=== PATIENT | female | born 1965 | race Caucasian/White ===

== ENCOUNTER → 2021-08-12 | Outpatient (CLI) | payer OTHER | LOC: M WHC 10:17 | PROVIDERS: ATTEND Student in an Organized Health Care Education/Training Program | DX: Z12.31 Encounter for screening mammogram for malignant neoplasm of breast (principal); Z78.0 Asymptomatic menopausal state ==

== ENCOUNTER → 2022-08-16 | Outpatient (CLI) | payer BC, OTHER ==
[~2022-08-16] MED LIST: ALPR1TAB3 PO; LEXA1TAB PO; LISI20TA33 PO; METO1TAB7 PO; MIRT-11 PO
== END ==
LOC: M WHC 13:55
PROVIDERS: ATTEND Student in an Organized Health Care Education/Training Program
DX: Z12.31 Encounter for screening mammogram for malignant neoplasm of breast (principal)

== ENCOUNTER → 2022-08-23 | Outpatient (CLI) | payer BC, OTHER | LOC: M LABSMTC 08:51 | PROVIDERS: ATTEND Anesthesiology | DX: Z01.818 Encounter for other preprocedural examination (principal) ==

== ENCOUNTER 2022-08-24 08:11 | Day surgery (SDC) | payer BC ==
[~2022-08-24] VITALS: Ht 167.6 cm; Wt 79.3 kg
[~2022-08-24 08:11] MED LIST changes: +NS 1,000 ML IV ONE
[2022-08-24] MEDS ORDERED: propofoL 200 MG/20 ML VIAL As Ordered ONE (09:04)
[2022-08-24 09:42] VITALS: BP 131/81
== END 2022-08-24 09:44 | disposition home or self-care (01) ==
LOC: M OPP 08:11
PROVIDERS: ATTEND Surgery
DX: Z12.11 Encounter for screening for malignant neoplasm of colon (principal); K64.0 First degree hemorrhoids; K57.30 Diverticulosis of large intestine without perforation or abscess without bleeding; Z79.899 Other long term (current) drug therapy; Z99.89 Dependence on other enabling machines and devices; G47.33 Obstructive sleep apnea (adult) (pediatric); I34.1 Nonrheumatic mitral (valve) prolapse; F41.9 Anxiety disorder, unspecified; G43.909 Migraine, unspecified, not intractable, without status migrainosus; Z90.49 Acquired absence of other specified parts of digestive tract

== ENCOUNTER → 2022-10-03 | Outpatient (CLI) | payer BC ==
[~2022-10-03] MED LIST changes: -NS 1,000 ML IV ONE
== END ==
LOC: M WHC 13:36
PROVIDERS: ATTEND Student in an Organized Health Care Education/Training Program
DX: R92.1 Mammographic calcification found on diagnostic imaging of breast (principal)
CPT/HCPCS: 76642; 77065; G0279

== ENCOUNTER 2023-09-23 08:13 | Emergency (ER) | payer BC, OTHER ==
[~2023-09-23] VITALS: Ht 167.6 cm; Wt 83.6 kg
[2023-09-23] MEDS ORDERED: ISOSORBIDE MON. (IMDUR) 60MG XR TAB PO ONE (08:45)
[2023-09-23] MEDS ORDERED: ALPRAZolam 0.5 MG TAB PO ONE (08:45)
[2023-09-23 09:12] VITALS: BP 175/102
[2023-09-23 09:14] LABS: BASO # 0.1 10^3/uL (0.0-0.2); BASO % 0.7 % (0.0-1.0); EOS # 0.3 10^3/uL (0.0-0.5); EOS % 3.7 % (0.0-3.0); HEMATOCRIT 42.2 % (36.0-47.0); HEMOGLOBIN 14.6 g/dl (12.0-15.5); LYMPH # 1.9 10^3/uL (1.5-5.0); MEAN CORPUSCULAR HEMOGLOBIN 33.5 pg (27.0-33.0); MEAN CORPUSCULAR HGB CONC 34.6 g/dl (32.0-36.5); MEAN CORPUSCULAR VOLUME 96.8 fl (80.0-96.0); MONO # 0.6 10^3/uL (0.0-0.8); MONO % 8.1 % (2.0-8.0); NEUTROPHILS % 59.2 % (36.0-66.0); PLATELET COUNT, AUTOMATED 190 10^3/uL (150-450); RED BLOOD COUNT 4.36 10^6/uL (4.00-5.40); WHITE BLOOD COUNT 6.8 10^3/uL (4.0-10.0)
[2023-09-23 09:26] LABS: INR 1.06; PROTHROMBIN TIME 13.5 SECONDS (12.5-14.5)
[2023-09-23 09:29] LABS: D-DIMER QUANT 0.28 ug/mL (<0.5)
[2023-09-23 09:39] LABS: ALBUMIN 3.6 G/DL (3.2-5.2); ALKALINE PHOSPHATASE 78 U/L (46-116); ALT/SGPT 52 U/L (7.0-40); AST/SGOT 43 U/L (<34); BILIRUBIN,DIRECT 0.1 MG/DL (<0.4); BILIRUBIN,TOTAL 0.3 MG/DL (0.3-1.2); BLOOD UREA NITROGEN 17 MG/DL (9-23); CALCIUM LEVEL 9.4 MG/DL (8.5-10.1); CARBON DIOXIDE LEVEL 26 MMOL/L (20-31); CHLORIDE LEVEL 106 MMOL/L (98-107); CK-MB VALUE MASS < 1.0 NG/ML (<3.6); CREATININE FOR GFR 0.87 MG/DL (0.55-1.30); GLOMERULAR FILTRATION RATE > 60.0 (>51); GLUCOSE, FASTING 94 MG/DL (60-100); MAGNESIUM LEVEL 1.8 MG/DL (1.8-2.4); POTASSIUM SERUM 4.6 MMOL/L (3.5-5.1); SODIUM LEVEL 135 MMOL/L (136-145); TOTAL PROTEIN 7.2 G/DL (5.7-8.2)
[2023-09-23 09:40] LABS: THYROID STIMULATING HORMONE 1.942 uIU/ML (0.55-4.78)
[2023-09-23 09:41] LABS: FREE T4 0.99 NG/DL (0.89-1.76)
[2023-09-23 09:45] LABS: CPK CREATINE PHOSPHOKINASE 46 U/L (34-145); MB/CK RELATIVE INDEX 2.17 (< OR =4)
[2023-09-23] MEDS ORDERED: ISOS1TAB36 PO (09:50)
[2023-09-23] MEDS ORDERED: LISI20TA33 PO (09:50)
[2023-09-23 10:00] VITALS: BP 128/81; TEMP 98.1; O2SAT 94
== END 2023-09-23 10:19 | disposition home or self-care (01) ==
LOC: M ED 08:13
DX: I16.0 Hypertensive urgency (principal); I10 Essential (primary) hypertension; F41.9 Anxiety disorder, unspecified

== ENCOUNTER → 2023-10-20 | Outpatient (CLI) | payer BC ==
[~2023-10-20] MED LIST changes: +ISOS1TAB36 PO
== END ==
LOC: M WHC 12:49
PROVIDERS: ATTEND Physician Assistant
DX: Z12.31 Encounter for screening mammogram for malignant neoplasm of breast (principal); R92.343 Mammographic extreme density, bilateral breasts

== ENCOUNTER → 2023-11-24 | Outpatient (REF) | payer BC, OTHER ==
[2023-11-24 18:19] LABS: RSV AMPLIFICATION NEGATIVE (NEGATIVE)
== END ==
LOC: M SFHCLERA 16:55
PROVIDERS: ATTEND Physician Assistant
DX: J22 Unspecified acute lower respiratory infection (principal)

== ENCOUNTER → 2024-03-27 | Outpatient (CLI) | payer BC | LOC: M SLEEP 20:00 | PROVIDERS: ATTEND Nurse Practitioner Adult Health | DX: G47.33 Obstructive sleep apnea (adult) (pediatric) (principal) ==

== ENCOUNTER → 2024-05-03 | Outpatient (CLI) | payer BC | LOC: M SLEEP 20:00 | PROVIDERS: ATTEND Nurse Practitioner Adult Health | DX: G47.33 Obstructive sleep apnea (adult) (pediatric) (principal) ==

== ENCOUNTER 2024-10-11 22:46 | Inpatient (IN) | payer BC, MEDICARE, OTHER ==
[~2024-10-11] VITALS: Ht 167.6 cm; Wt 89.2 kg
[2024-10-11] MEDS ORDERED: ZONI50CA PO (23:48)
[2024-10-11] MEDS ORDERED: BENZ200C70 PO (23:48)
[2024-10-11] MEDS ORDERED: ALPR2TAB3 PO (23:48)
[2024-10-11] MEDS ORDERED: AMLO1TAB24 PO (23:50)
[2024-10-11 23:51] LABS: HEMATOCRIT 41.1 % (36.0-47.0); HEMOGLOBIN 14.2 g/dl (12.0-15.5); MEAN CORPUSCULAR HEMOGLOBIN 31.6 pg (27.0-33.0); MEAN CORPUSCULAR HGB CONC 34.5 g/dl (32.0-36.5); MEAN CORPUSCULAR VOLUME 91.3 fl (80.0-96.0); PLATELET COUNT, AUTOMATED 223 10^3/uL (150-450); WHITE BLOOD COUNT 6.8 10^3/uL (4.0-10.0)
[2024-10-12 00:08] LABS: AMPHETAMINES LEVEL URINE NEGATIVE (NEGATIVE); BARBITURATES URINE NEGATIVE (NEGATIVE); COCAINE METABOLITE URINE NEGATIVE (NEGATIVE)
[2024-10-12 00:09] LABS: CANNABINOIDS URINE NEGATIVE (NEGATIVE); METHADONE URINE NEGATIVE (NEGATIVE); OPIATES URINE NEGATIVE (NEGATIVE); PHENCYCLIDINE URINE NEGATIVE (NEGATIVE)
[2024-10-12 00:11] LABS: BENZODIAZEPINES URINE POSITIVE (NEGATIVE)
[2024-10-12 00:12] LABS: SALICYLATE LEVEL < 3.0 MG/DL (<30)
[2024-10-12 00:13] LABS: ALBUMIN 4.1 G/DL (3.2-5.2); ALKALINE PHOSPHATASE 68 U/L (35-104); ALT/SGPT 51 U/L (7.0-40); AST/SGOT 33 U/L (<34); BILIRUBIN,DIRECT < 0.1 MG/DL (<0.4); BILIRUBIN,TOTAL 0.2 MG/DL (0.3-1.2); BLOOD UREA NITROGEN 16 MG/DL (9-23); CARBON DIOXIDE LEVEL 24 MMOL/L (20-31); CHLORIDE LEVEL 108 MMOL/L (98-107); CREATININE FOR GFR 0.82 MG/DL (0.55-1.30); GLOMERULAR FILTRATION RATE > 60.0 (>45); GLUCOSE, FASTING 98 MG/DL (74-106); POTASSIUM SERUM 4.2 MMOL/L (3.5-5.1); SODIUM LEVEL 146 MMOL/L (136-145); TOTAL PROTEIN 8.1 G/DL (5.7-8.2)
[2024-10-12 00:15] LABS: THYROID STIMULATING HORMONE 1.913 uIU/ML (0.55-4.78)
[2024-10-12] MEDS: ALPRAZolam 0.5 MG TAB PO ONE (09:25)
[2024-10-12] MEDS: amLODIPine 5 MG TAB PO ONE (09:48)
[2024-10-12] MEDS: METOPROLOL SUCC (TopROL XL) 50MG **XL** TAB PO ONE (09:49)
[2024-10-12] MEDS: ISOSORBIDE MON. (IMDUR) 60MG XR TAB PO ONE (10:21)
[2024-10-12] MEDS ORDERED: LISI20TA33 PO (10:53)
[2024-10-12] MEDS ORDERED: ALPR1TAB3 PO (10:53)
[2024-10-12] MEDS ORDERED: ISOS1TAB36 PO (10:53)
[2024-10-12] MEDS ORDERED: HOME MED LIST COMPLETE! XX SCH (11:00)
[2024-10-12 11:40] VITALS: BP 129/87; TEMP 97.8; O2SAT 98
[2024-10-12] MEDS ORDERED: LORazepam 2 MG TAB PO PRN (13:20)
[2024-10-12] MEDS ORDERED: MAALOX 30 ML SUSP *UDC PO PRN (13:35)
[2024-10-12] MEDS ORDERED: ACETAMINOPHEN 325 MG TAB PO PRN (13:35)
[2024-10-12] MEDS ORDERED: IBUPROFEN 400MG TAB PO PRN (13:35)
[2024-10-12] MEDS ORDERED: OLANZapine ORAL DISINTEGRATING TAB 5MG PO PRN (13:35)
[2024-10-12] MEDS ORDERED: MOM 30ML SUSPENSION UDC PO PRN (13:35)
[2024-10-12] MEDS: FOLIC ACID 1MG TAB PO SCH (14:00)
[2024-10-12] MEDS: THIAMINE 100 MG TAB PO SCH (14:00)
[2024-10-12] MEDS: MULTIVITAMINS/MINERALS THERAP 1 TAB PO SCH (14:00)
[2024-10-12] MEDS: GABAPENTIN 100 MG CAP PO SCH (14:02)
[2024-10-12 15:37] VITALS: BP 121/72; TEMP 98.3; O2SAT 95
[2024-10-12 20:11] VITALS: BP 125/85
[2024-10-12] MEDS: traZODone 50 MG TAB PO PRN (20:16)
[2024-10-12] MEDS: ZONISAMIDE 50 MG CAP (ZONEGRAN) PO SCH (20:16)
[2024-10-12] MEDS: diphenhydrAMINE 25MG CAP PO PRN (20:16)
[2024-10-12] MEDS ORDERED: ZONISAMIDE 100 MG CAP (ZONEGRAN) PO SCH (21:00)
[2024-10-12] MEDS ORDERED: MIRTAZAPINE 15 MG TAB PO SCH (21:00)
[2024-10-12] MEDS: MIRTAZAPINE 15 MG TAB PO SCH (21:25)
[2024-10-13 06:18] VITALS: BP 145/71; TEMP 97.4; O2SAT 98
[2024-10-13] MEDS: amLODIPine 5 MG TAB PO SCH (08:26)
[2024-10-13] MEDS: METOPROLOL SUCC (TopROL XL) 50MG **XL** TAB PO SCH (08:27)
[2024-10-13] MEDS: ISOSORBIDE MON. (IMDUR) 60MG XR TAB PO SCH (09:38)
[2024-10-13 14:36] VITALS: BP 116/66; TEMP 97.9; O2SAT 100
[2024-10-14] VITALS (7 sets, daily range): BP systolic 126–138; BP diastolic 74–83; TEMP 97.3–98.4; O2SAT 99–100
[2024-10-14] MEDS: ESCITALOPRAM OXALATE 10 MG TAB (LEXAPRO) PO SCH (10:27)
[2024-10-14] MEDS: ZONISAMIDE 100 MG CAP (ZONEGRAN) PO SCH (20:40)
[2024-10-15 06:21] VITALS: BP 158/87; TEMP 97.2; O2SAT 99
[2024-10-15 09:02] VITALS: BP 145/78
[2024-10-15 14:00] VITALS: BP 110/70
[2024-10-15 15:39] VITALS: BP 110/70; TEMP 98.5; O2SAT 100
[2024-10-16 06:51] VITALS: BP 125/75; TEMP 97.6; O2SAT 98
[2024-10-16] MEDS ORDERED: LEXA1TAB PO (07:44)
[2024-10-16] MEDS ORDERED: ZONE1CAP PO (07:44)
[2024-10-16] MEDS ORDERED: MIRT-10 PO (07:44)
[2024-10-16] MEDS ORDERED: TRAZ-252 PO (07:44)
[2024-10-16] MEDS ORDERED: GABA-1171 PO (07:44)
[2024-10-16 08:07] VITALS: BP 144/87
== END 2024-10-16 11:50 | disposition home or self-care (01) | DRG 880 ==
LOC: M ED 22:46 → M ED INP 10-12 10:23 → M PSY 10-12 11:13
PROVIDERS: ADMIT Psychiatry & Neurology Psychiatry; ATTEND Psychiatry & Neurology Psychiatry
DX: F41.1 Generalized anxiety disorder (principal); R45.851 Suicidal ideations; F32.9 Major depressive disorder, single episode, unspecified; Z79.899 Other long term (current) drug therapy; Z91.51 Personal history of suicidal behavior; I10 Essential (primary) hypertension; Z98.84 Bariatric surgery status

== ENCOUNTER 2025-01-08 15:11 | Emergency (ER) | payer OTHER ==
[~2025-01-08] VITALS: Ht 167.6 cm; Wt 80.5 kg
[~2025-01-08 15:11] MED LIST changes: +ALPR2TAB3 PO; +AMLO1TAB24 PO; +BENZ200C70 PO; +GABA-1171 PO; +MIRT-10 PO; +TRAZ-252 PO; +ZONE1CAP PO; +ZONI50CA PO
[2025-01-08 15:54] LABS: BASO # 0.1 10^3/uL (0.0-0.2); BASO % 0.8 % (0.0-1.0); HEMATOCRIT 37.3 % (36.0-47.0); HEMOGLOBIN 12.4 g/dl (12.0-15.5); LYMPH # 2.5 10^3/uL (1.5-5.0); LYMPH % 29.8 % (24.0-44.0); MEAN CORPUSCULAR HEMOGLOBIN 30.2 pg (27.0-33.0); MEAN CORPUSCULAR HGB CONC 33.2 g/dl (32.0-36.5); MEAN CORPUSCULAR VOLUME 90.8 fl (80.0-96.0); MONO # 0.6 10^3/uL (0.0-0.8); NEUTROPHILS # 5.1 10^3/uL (1.5-8.5); NEUTROPHILS % 61.8 % (36.0-66.0); PLATELET COUNT, AUTOMATED 262 10^3/uL (150-450); RED BLOOD COUNT 4.11 10^6/uL (4.00-5.40); WHITE BLOOD COUNT 8.3 10^3/uL (4.0-10.0)
[2025-01-08 15:58] LABS: KETONE, URINE AUTO RFX NEGATIVE (NEGATIVE); LEUKOCYTE ESTERASE UR AUTO RFX 2+ (NEGATIVE); NITRITE, URINE AUTO RFX NEGATIVE (NEGATIVE); RBC, URINE AUTO RFX 2 /HPF (0-3); SQUAM EPITHELIAL CELL UR AURFX 2 /HPF (0-6); WBC, URINE AUTO RFX 25 /HPF (0-3)
[2025-01-08 16:19] LABS: LIPASE 71 U/L (12-53)
[2025-01-08 16:21] LABS: ALKALINE PHOSPHATASE 70 U/L (35-104); ALT/SGPT 30 U/L (7.0-40); AST/SGOT 18 U/L (<34); BILIRUBIN,DIRECT < 0.1 MG/DL (<0.4); BILIRUBIN,TOTAL 0.3 MG/DL (0.3-1.2); TOTAL PROTEIN 7.6 G/DL (5.7-8.2)
[2025-01-08 16:45] VITALS: BP 128/74; TEMP 98.6; O2SAT 99
== END 2025-01-08 17:13 | disposition home or self-care (01) ==
LOC: M ED 15:11
DX: K92.2 Gastrointestinal hemorrhage, unspecified (principal); I10 Essential (primary) hypertension; F10.10 Alcohol abuse, uncomplicated; Z79.899 Other long term (current) drug therapy

== ENCOUNTER → 2025-06-17 | Outpatient (REF) | payer BC ==
[2025-06-17 18:19] LABS: IRON (FE) 44.0 UG/DL (50-170)
[2025-06-17 18:20] LABS: PERCENT SATURATION 13.1 % (13.2-45.0)
== END ==
LOC: M LAB REF 17:11
PROVIDERS: ATTEND Internal Medicine
DX: D50.9 Iron deficiency anemia, unspecified (principal)

== ENCOUNTER → 2025-08-25 | Outpatient (CLI) | payer BC | LOC: M RAD 11:52 | PROVIDERS: ATTEND Internal Medicine | DX: R59.0 Localized enlarged lymph nodes (principal) ==

== ENCOUNTER → 2025-08-26 | Outpatient (CLI) | payer BC ==
[~2025-08-26] MED LIST changes: +ISOVUE-370 76% 100 ML VIAL As Ordered ONE
== END ==
LOC: M RAD 14:48
PROVIDERS: ATTEND Internal Medicine
DX: R59.0 Localized enlarged lymph nodes (principal); R91.8 Other nonspecific abnormal finding of lung field
CPT/HCPCS: 70491; 82565; Q9967